=== PATIENT | female | born 1965 | race Caucasian/White ===

== ENCOUNTER → 2020-09-15 16:57 | Outpatient (CLI) | payer OTHER, SELFPAY ==
--- NOTE | 2020-09-15 17:02 | DI.RAD.S_ITS ---
PROCEDURE: XR CERVICAL SPINE 4V OR 5V INDICATIONS: Cervical radiculopathy TECHNIQUE: 5 views of the cervical spine acquired. COMPARISON: None. FINDINGS: Bones: No fractures or dislocations to the T1 level. Oblique images demonstrate no bony foraminal stenoses. Note is made of mild C4-5 and moderately severe C5-6 and C6-7 degenerative disc disease with osteophytic spurring. On the oblique views there is foraminal stenosis that is moderate and symmetric at C4-5 6 and C6-7. Soft tissues: No prevertebral soft tissue swelling. IMPRESSION: Midcervical degenerative changes as discussed with likelihood of significant spinal and foraminal stenosis at C5-6 and C6-7. No trauma found. Dictated by: Jack Hubbard M.D. on 09/15/2020 at 17:23 Approved by: Jack Hubbard M.D. on 09/15/2020 at 17:24
== END ==
PROVIDERS: PCP Nurse Practitioner Family; Referring Provider Physical Medicine & Rehabilitation; Visit Provider Physical Medicine & Rehabilitation
DX: M47.22 Other spondylosis with radiculopathy, cervical region (principal)
CPT/HCPCS: 72050